=== PATIENT | male | born 1955 | race Caucasian/White ===

== ENCOUNTER 2020-10-25 10:21 | Outpatient (REF) | payer MEDICARE, SELFPAY | END 2020-10-25 10:22 | disposition home or self-care (01) | LOC: HO.LAB 10:21 | PROVIDERS: PCP Internal Medicine; Visit Provider Internal Medicine | DX: Z20.822 Contact with and (suspected) exposure to COVID-19 (principal) | CPT/HCPCS: C9803; U0003; U0005 ==

== ENCOUNTER 2021-01-19 14:19 | Emergency (ER) | payer MEDICARE, SELFPAY ==
[2021-01-19 16:03] VITALS: BP 154/56; PULSE 61; RESP 16; TEMP 36.6; O2SAT 97
== END 2021-01-19 19:59 | disposition left against medical advice (07) ==
PROVIDERS: Emergency Provider Emergency Medicine
DX: S09.90XA Unspecified injury of head, initial encounter (principal); X58.XXXA Exposure to other specified factors, initial encounter; Y93.9 Activity, unspecified; Y92.9 Unspecified place or not applicable; Y99.9 Unspecified external cause status
CPT/HCPCS: 99281; 99282

== ENCOUNTER 2021-01-27 13:56 | Outpatient (REF) | payer MEDICARE, SELFPAY | END 2021-01-27 13:57 | disposition home or self-care (01) | LOC: HO.LAB 13:56 | PROVIDERS: Visit Provider Internal Medicine | DX: Z20.822 Contact with and (suspected) exposure to COVID-19 (principal) | CPT/HCPCS: C9803; U0003; U0005 ==

== ENCOUNTER 2021-04-29 09:04 | Outpatient (REF) | payer MEDICARE, SELFPAY ==
[2021-04-29 09:44] LABS: Binax Internal Control QC Valid; Binax Lot number: 9864; Binax Now Covid-19 Ag Negative (Negative)
== END 2021-04-29 09:05 | disposition home or self-care (01) ==
LOC: HO.LAB 09:04
PROVIDERS: Visit Provider Internal Medicine
DX: Z20.822 Contact with and (suspected) exposure to COVID-19 (principal)
CPT/HCPCS: C9803